=== PATIENT | female | born 1945 | race Caucasian/White ===

== ENCOUNTER 2025-05-20 12:58 | Emergency (ER) | payer MEDICARE, SELFPAY ==
[2025-05-20 12:58] VITALS: BP 165/110; PULSE 59; RESP 16; TEMP 36.8; O2SAT 96; BMI 29.4
--- NOTE | 2025-05-20 14:48 | CT_ITS ---
EXAM: CT BRAIN/HEAD WITHOUT CONTRAST; SPINE CERVICAL WITHOUT CONTRAST CLINICAL HISTORY: FALL, HEAD TRAUMA COMPARISON: None. TECHNIQUE: Noncontrast CT images of the head and cervical spine with multiplanar reconstructions. Dose reduction techniques were used including intermediate exposure control (AEC),iterative reconstruction technique, and/or mA and/or KV dose adjustments based on patient's size. FINDINGS: HEAD: No acute intracranial hemorrhage, extra-axial collection, mass effect or evidence of acute infarct. Mild-moderate generalized brain parenchymal volume loss and chronic microangiopathic changes. Atherosclerotic calcification along the carotid siphons. Absent [place] ocular lenses. No acute skull base or calvarial fracture. Well-aerated paranasal sinuses and mastoid air cells. CERVICAL SPINE: No acute fracture or subluxation. Alignment is anatomic. Postoperative changes of ACDF at C5-6 with intact hardware. Mild multilevel degenerative changes. No prevertebral soft tissue swelling. Atherosclerotic vascular calcifications. Imaged lung apices are clear. CT/Spine Cervical without Contras IMPRESSION: No acute intracranial or cervical spine traumatic findings. Reading Location: [id number]
--- NOTE | 2025-05-20 14:48 | CT_ITS ---
PROCEDURE: CT CHEST, ABD, PEL W/CONTRAST 05/20/2025 REASON FOR EXAM: FALL, LEFT FLANK PAIN, BRUISING TECHNIQUE: Chest, abdomen and pelvis CT with intravenous contrast. Coronal and Sagittal reconstruction series were provided. One or more dose reduction techniques were used (e.g., Automated exposure control, adjustment of the mA and/or kV according to patient size, use of iterative reconstruction technique. PATIENT PREPARATION: Per protocol ORAL CONTRAST TYPE: None. AMOUNT: 99 mL CONTRAST: Isovue 370 VOLUME: 99mL 20 gauge IV RADIATION DOSE SUMMARY: CTDlvol: 464.13 mGy DLP: 1599.72 mGycm COMPARISON: None. FINDINGS: CT CHEST: Hardware: None. Lymph nodes: No lymphadenopathy. Heart and Vasculature: Aneurysmal dilation of the ascending aorta measures 4 cm. No cardiomegaly. Atherosclerotic calcifications of the coronary arteries. Lungs and Airways: Clear. Pleura: No pneumothorax. No pleural effusion. Bones: No acute bony abnormalities. CT ABDOMEN/PELVIS: Liver: Unremarkable. Gallbladder: Unremarkable. No biliary dilation. Spleen: Unremarkable. Pancreas: Unremarkable. Adrenals: Unremarkable. Kidneys: No nephrolithiasis. No hydronephrosis. No masses. Bladder: Unremarkable. Reproductive Organs: Unremarkable. Bowel: Hiatal hernia measures up to 5 cm. Appendix: Normal. Lymph nodes: No lymphadenopathy. Vasculature: Atherosclerotic calcifications. Peritoneum / Retroperitoneum: No free air or free fluid. Bones: No acute bony abnormalities. Multilevel degenerate changes. CT/CT Chest, Abd, Pel w/Contrast IMPRESSION: No acute chest, abdominal or pelvis abnormalities. Reading Location: [facility]
--- NOTE | 2025-05-20 14:48 | EKG12_ITS ---
Test Reason : FALL Blood Pressure : */* mmHG Vent. Rate : 51 BPM Atrial Rate : 51 BPM P-R Int : 172 ms QRS Dur : 76 ms QT Int : 470 ms P-R-T Axes : 52 -8 42 degrees QTcB Int : 433 ms Sinus bradycardia Possible Inferior infarct , age undetermined Abnormal ECG Confirmed by MARGO COLEMAN ([id number]), advertising editor CORAL MILLER ([id number]) on 05/25/2025 6:30:06 AM Referred By: Confirmed By: MARGO COLEMAN
--- NOTE | 2025-05-20 14:48 | CT_ITS ---
EXAM: CT BRAIN/HEAD WITHOUT CONTRAST; SPINE CERVICAL WITHOUT CONTRAST CLINICAL HISTORY: FALL, HEAD TRAUMA COMPARISON: None. TECHNIQUE: Noncontrast CT images of the head and cervical spine with multiplanar reconstructions. Dose reduction techniques were used including intermediate exposure control (AEC),iterative reconstruction technique, and/or mA and/or KV dose adjustments based on patient's size. FINDINGS: HEAD: No acute intracranial hemorrhage, extra-axial collection, mass effect or evidence of acute infarct. Mild-moderate generalized brain parenchymal volume loss and chronic microangiopathic changes. Atherosclerotic calcification along the carotid siphons. Absent [place] ocular lenses. No acute skull base or calvarial fracture. Well-aerated paranasal sinuses and mastoid air cells. CERVICAL SPINE: No acute fracture or subluxation. Alignment is anatomic. Postoperative changes of ACDF at C5-6 with intact hardware. Mild multilevel degenerative changes. No prevertebral soft tissue swelling. Atherosclerotic vascular calcifications. Imaged lung apices are clear. CT/Brain/Head without Contrast IMPRESSION: No acute intracranial or cervical spine traumatic findings. Reading Location: [id number]
--- NOTE | 2025-05-20 15:22 | ED.VIS.FALL ---
HPI HPI - Fall History of Present Illness Chief Complaint: Fall Narrative Narrative: Patient is a 80-year-old female presenting to the emergency department for a fall. Patient has past medical history of dementia. She states that she remembers she fell but is unsure if she hit her head or the circumstances around what caused her to fall. She lives in the independent living facility. Daughter is at bedside and helps provide history. States that the patient fell yesterday. She was noted to have bruising on her left flank today and she took her to the urgent care where they sent her here for evaluation due to concern for spleen injury. Patient is is not on any oral anticoagulation. Denies any neck or midline back pain. She thinks she felt lightheaded before her fall and states this happens when she stands up too fast. PFSH PFSH Allergy/AdvReac Type Severity Reaction Status Date / Time No Known Allergies Allergy Verified 05/20/25 12:58 ROS ROS ED ROS Narrative see HPI EXAM Physical Exam Narrative Exam Narrative: Vital signs: Reviewed General: Alert and oriented x 3. No acute distress. Chronically ill-appearing. HEENT: Head is normocephalic and atraumatic, sinuses nontender, pupils equal round and reactive. Nares are patent. Oropharynx and throat exams normal. Neck: Supple without lymphadenopathy nontender. No midline cervical spinal tenderness to palpation. No step-offs or deformities. Cardiovascular: Regular rate and rhythm, no murmurs. No rubs or gallops. Normal S1 and S2 Respiratory: Clear to auscultation bilaterally. No wheezes, rales, rhonchi Chest: Left lateral posterior chest wall with ecchymosis. There is no crepitus. Stable to palpation, tenderness to palpation. Abdominal: Soft and left upper quadrant tenderness to palpation. Normal bowel sounds. No guarding or rebound. Nonsurgical abdomen Extremities: Hips are stable and nontender to palpation. Extremities are atraumatic and nontender to palpation with normal active range of motion. No midline thoracic or lumbar spinal tenderness to palpation. No step-offs or deformities. Skin: No rash or redness. Neurological: Cranial nerves II through XII are grossly intact. Normal strength and sensation. Normal cerebellar function The rest of the physical exam is unremarkable Const Vital Signs: 05/20/25 12:58 Temperature 98.3 F Temperature Source Oral Pulse Rate 59 L Respiratory Rate 16 Blood Pressure 165/110 H Blood Pressure Mean 128 Pulse Ox 96 Oxygen Delivery Method Room Air MDM MDM MDM Narrative Medical decision making narrative: Patient is an 80-year-old female presenting to the emergency department after a fall yesterday. Patient was seen and examined. Vitals are stable. She is mildly hypertensive at 165/110. No acute distress. Given the fall, age and unknown if she hit her head, CT of the brain, cervical spine were ordered. CT of the chest and abdomen were also ordered given the bruising and tenderness along the left lateral chest wall and left upper quadrant. Labs and EKG obtained given the patient's reported lightheadedness to evaluate for any anemia, electrolyte abnormality or dysrhythmia. EKG shows sinus bradycardia. No dysrhythmia. No ischemic changes. No ST elevation or depression. CT of the brain with no acute intracranial findings. CT cervical spine negative for any acute fractures. CBC with mild leukocytosis of 11.9 and normal hemoglobin. CMP with no significant abnormalities. CT chest abdomen pelvis are negative for any acute traumatic injuries. Patient ambulated well with walker which is baseline for her. Updated patient and daughter at bedside on findings. They feel comfortable with discharge and going back to facility. Your evaluation in the Emergency Department did not reveal any acute reason for admission. However, I want to emphasize that you may be early in the course of a disease process or illness even if it is not present. For this reason you should follow-up within 24 hours for reevaluation with either your primary care physician or if necessary back here in the Emergency Department. You should return to the Emergency Department immediately if your symptoms worsen or new symptoms develop. Clinical impression Fall Chest wall trauma Mild leukocytosis History & Record Review Discussion w/independent historian: Patient and Family Lab Data Attestation: I reviewed the patient's lab results. Labs: Laboratory Results - last 24 hr 05/20/25 15:25 WBC 11.9 H RBC 4.91 Hgb 15.0 Hct 43.8 MCV 89.2 MCH 30.5 MCHC 34.2 RDW Std Deviation 44.9 H RDW Coeff of Deena 13.8 Plt Count 212 MPV 10.8 Immature Gran % (Auto) 0.400 Neut % (Auto) 72.9 H Lymph % (Auto) 19.9 [place] % (Auto) 5.7 Eos % (Auto) 0.6 Baso % (Auto) 0.5 Absolute Neuts (auto) 8.7 H Absolute Lymphs (auto) 2.38 Nucleated RBC % 0 Sodium 140 Potassium 4.0 Chloride 103 Carbon Dioxide 23.7 Anion Gap 13 BUN 13 Creatinine 0.79 Estim Creat Clear Calc 52.72 Est GFR (MDRD) Non-Af 75 BUN/Creatinine Ratio 16.4 Glucose 101 H Calcium 9.9 Total Bilirubin 0.83 AST 24 ALT 15 Alkaline Phosphatase 79 Total Protein 7.4 Albumin 4.3 Globulin 3.1 Albumin/Globulin Ratio 1.4 Radiography Diagnostic Testing: Clinical Impression(s) from Imaging Studies Brain CT 05/20/25 14:48 IMPRESSION: No acute intracranial or cervical spine traumatic findings. Reading Location: [facility] Cervical Spine CT 05/20/25 14:48 IMPRESSION: No acute intracranial or cervical spine traumatic findings. Reading Location: [facility] Chest/Abdomen/Pelvis CT 05/20/25 14:48 IMPRESSION: No acute chest, abdominal or pelvis abnormalities. Reading Location: [facility] Discharge Plan Triage Chief Complaint: Fall ED Provider: Siobhan Quinones Dx/Rx/DC Orders Clinical Impression: Fall, Chest wall trauma Instructions: ED Fall with Uncertain Cause, ED Fall Prevention Primary Care Provider: Indu Castrejon Referrals: Indu Castrejon MD [Primary Care Provider] - 2 Days Activity Restrictions/Additional Instructions: Your evaluation in the Emergency Department did not reveal any acute reason for admission. However, I want to emphasize that you may be early in the course of a disease process or illness even if it is not present. For this reason you should follow-up within 24 hours for reevaluation with either your primary care physician or if necessary back here in the Emergency Department. You should return to the Emergency Department immediately if your symptoms worsen or new symptoms develop. Print Language: Tajik Disposition Disposition: Home, Self Care
[2025-05-20 15:34] LABS: Hematocrit 43.8 % (37-47); Hemoglobin 15.0 g/dL (12.0-15.0); Immature Granulocytes Count 0.050 X10^3/uL (0.0-0.0); Mean Corp Hgb Conc 34.2 g/dL (32-36); Mean Corpuscular Volume 89.2 fL (81-99); Mean Platelet Vol. 10.8 fl (6.2-12.0); NRBC Flagged by Analyzer 0 % (0-5); Platelet Count 212 K/mm3 (150-450); RBC Distribution Width CV 13.8 % (11.6-14.6); RBC Distribution Width SD 44.9 fl (35.1-43.9); Red Blood Count 4.91 M/mm3 (4.2-5.4); White Blood Count 11.9 K/mm3 (4.4-11.0)
[2025-05-20 16:34] LABS: AST(SGOT) 24 U/L (<=31); Alanine Aminotransfer ALT/SGPT 15 U/L (<=34); Albumin, Serum 4.3 g/dL (3.4-4.8); Alkaline Phosphatase 79 U/L (35-104); Anion Gap 13 (5-15); BUN 13 mg/dL (4-19); BUN/Creat Ratio 16.4 RATIO (10-20); Calcium,Total 9.9 mg/dL (7.6-11.0); Carbon Dioxide 23.7 mmol/L (21.0-32.0); Chloride 103 mmol/L (98-108); Estimated Creatinine Clearance 52.72 ml/min (50-250); Globulin 3.1 g/dL (2.2-4.2); Glucose 101 mg/dL (70-99); Potassium 4.0 mmol/L (3.3-5.1)
== END 2025-05-20 17:29 | disposition home or self-care (01) ==
PROVIDERS: Emergency Provider Student in an Organized Health Care Education/Training Program; PCP Internal Medicine; Visit Provider Student in an Organized Health Care Education/Training Program
DX: S29.009A Unspecified injury of muscle and tendon of unspecified wall of thorax, initial encounter (principal); W19.XXXA Unspecified fall, initial encounter; D72.829 Elevated white blood cell count, unspecified
CPT/HCPCS: 70450; 71260; 72125; 74177; 80053; 85025; 93005; 99283; Q9967; A4216

== ENCOUNTER → 2025-06-23 05:30 | Outpatient (REF) | payer MEDICARE, SELFPAY ==
[2025-06-23 09:50] LABS: Hematocrit 36.6 % (37-47); Hemoglobin 12.4 g/dL (12.0-15.0); Immature Granulocytes Count 0.020 X10^3/uL (0.0-0.0); Mean Corp Hgb Conc 33.9 g/dL (32-36); Mean Corpuscular Volume 90.1 fL (81-99); Mean Platelet Vol. 11.3 fl (6.2-12.0); NRBC Flagged by Analyzer 0 % (0-5); Platelet Count 220 K/mm3 (150-450); RBC Distribution Width CV 14.1 % (11.6-14.6); RBC Distribution Width SD 46.8 fl (35.1-43.9); Red Blood Count 4.06 M/mm3 (4.2-5.4); White Blood Count 8.3 K/mm3 (4.4-11.0)
[2025-06-23 10:51] LABS: Cholesterol 140 mg/dL (<=200); Low Density Lipoprotein Calc. 57 mg/dL; Triglycerides 149 mg/dL; Very Low Density Lipoprotein 30 mg/dL (5-40); Vitamin D,25 Hydroxy 58.7 ng/mL (30-100); cholesterol:hdl ratio screen 2.61
[2025-06-23 10:52] LABS: AST(SGOT) 21 U/L (<=31); Alanine Aminotransfer ALT/SGPT 11 U/L (<=34); Albumin, Serum 3.5 g/dL (3.4-4.8); Alkaline Phosphatase 66 U/L (35-104); Anion Gap 13 (5-15); BUN 11 mg/dL (4-19); BUN/Creat Ratio 16.2 RATIO (10-20); Calcium,Total 8.8 mg/dL (7.6-11.0); Carbon Dioxide 22.6 mmol/L (21.0-32.0); Chloride 109 mmol/L (98-108); Globulin 2.4 g/dL (2.2-4.2); Glucose 90 mg/dL (70-99); Potassium 3.8 mmol/L (3.3-5.1)
== END ==
LOC: OLS.WHLTSB 05:30
PROVIDERS: PCP Internal Medicine; Visit Provider Internal Medicine
DX: F03.90 Unspecified dementia, unspecified severity, without behavioral disturbance, psychotic disturbance, mood disturbance, and anxiety (principal); G47.33 Obstructive sleep apnea (adult) (pediatric); C43.9 Malignant melanoma of skin, unspecified; I10 Essential (primary) hypertension
CPT/HCPCS: 36415; 80053; 80061; 82306; 85025